=== PATIENT | male | born 1990 | race Caucasian/White ===

== ENCOUNTER 2018-04-28 11:03 | Emergency (ER) | payer SELFPAY | END 2018-04-28 12:52 | disposition home or self-care (01) | LOC: ER 11:03 | DX: S23.3XXA Sprain of ligaments of thoracic spine, initial encounter (principal); M25.511 Pain in right shoulder; V43.62XA Car passenger injured in collision with other type car in traffic accident, initial encounter; Y93.89 Activity, other specified; Y92.488 Other paved roadways as the place of occurrence of the external cause; Y99.8 Other external cause status | CPT/HCPCS: 72072; 73030; 99284 ==